=== PATIENT | female | born 1990 | race American Indian/Alaskan Native ===

== ENCOUNTER 2017-10-16 18:16 | Emergency (ER) | payer MEDICAID ==
[2017-10-16 18:16] VITALS: BMI 30.7
[2017-10-16 18:23] VITALS: RESP 18; O2SAT 99
[2017-10-16 19:42] LABS: BASO % 0.3 % (0.0-2.0); EOS # 0.1 K/uL (0.0-0.7); EOS % 0.5 % (0.0-4.0); HEMOGLOBIN 13.6 g/dL (11.0-16.0); LYMPH # 2.8 K/uL (1.0-4.3); LYMPH % 28.6 % (20.0-40.0); MEAN CORPUSCULAR HGB CONC 34.2 g/dL (33.0-37.0); MEAN PLATELET VOLUME 8.8 fL (7.2-11.7); MONO # 0.7 K/uL (0.0-0.8); MONO % 7.4 % (0.0-10.0); NEUT # 6.3 K/uL (1.8-7.0); NEUT % 63.2 % (50.0-75.0); NRBC % 0.1 % (0.0-2.0); RBC 4.52 Mil/uL (3.80-5.20); RED CELL DISTRIBUTION WIDTH 13.2 % (11.5-14.5); WHITE BLOOD COUNT 9.9 K/uL (4.8-10.8)
[2017-10-16 19:43] LABS: MEAN CELL VOLUME 87.8 fL (81.0-99.0)
[2017-10-16] MEDS ORDERED: Sodium Chloride 0.9% 1,000 ML IV STA (19:46)
[2017-10-16 19:52] LABS: SQUAMOUS EPITHIAL 2 /hpf (0-5); URINE BACTERIA FEW (<OCC); URINE BILIRUBIN NEGATIVE (NEGATIVE); URINE BLOOD NEGATIVE (NEGATIVE); URINE CLARITY Hazy (Clear); URINE COLOR Yellow (YELLOW); URINE GLUCOSE (UA) NORMAL (Normal); URINE LEUKOCYTE ESTERASE NEG Leu/uL (Negative); URINE NITRATE POSITIVE (NEGATIVE); URINE PROTEIN NEGATIVE (NEGATIVE); URINE UROBILINOGEN NORMAL mg/dL (0.2-1.0)
[2017-10-16] MEDS ORDERED: Sodium Chloride 0.9% 1,000 ML ONE (19:55)
[2017-10-16 19:56] LABS: ALB/GLOB RATIO 1.1 (1.0-2.1); ALBUMIN 4.5 g/dL (3.5-5.0); ALT/SGPT 28 U/L (9-52); AST/SGOT 24 U/L (14-36); BLOOD UREA NITROGEN 8 mg/dL (7-17); CALCIUM 9.3 mg/dl (8.6-10.4); GFR AFRICAN-AMERICAN > 60; GFR NON-AFRICAN AMERICAN 55; LIPASE 107 U/L (23-300)
[2017-10-16] MEDS ORDERED: Iohexol 240 (50 ml) ONE (19:56)
--- NOTE | 2017-10-16 20:08 | C.PDOC ---
History Of Present Illness 27 year old female is brought to the ED by EMS for evaluation of lower back pain. Patient is c/o intermittent lower back pain for 1 week and for the past 2 days she started having abdominal pain mostly in her right lower abdomen associated with nausea, 2 episodes of vomiting last night and several episode of diarrhea. Denies vomiting today but feels nauseous. Patient reports having prior history of migraines, currently c/o a headache that feels different from prior. Patient denies photophobia, neck stiffness, recent travel, URI symptoms, visual changes, fever, chills, weakness, numbness. Time Seen by Provider: 10/16/17 19:17 Chief Complaint (Nursing): Abdominal Pain History Per: Patient History/Exam Limitations: no limitations Onset/Duration Of Symptoms: Days Current Symptoms Are (Timing): Still Present Location Of Pain/Discomfort: RLQ Radiation Of Pain To:: Back Quality Of Discomfort: "Pain" Associated Symptoms: Nausea, Vomiting, Diarrhea Exacerbating Factors: None Alleviating Factors: None Recent travel outside of the [place]: No Additional History Per: Patient Abnormal Vaginal Bleeding: No Past Medical History Reviewed: Historical Data, Nursing Documentation, Vital Signs Vital Signs: Last Vital Signs Temp 98.9 F 10/16/17 22:00 Pulse 75 10/16/17 22:00 Resp 18 10/16/17 22:00 BP 121/71 10/16/17 22:00 Pulse Ox 99 10/16/17 22:00 - Medical History PMH: No Chronic Diseases Surgical History: No Surg Hx - [facility] Procedures EXTRACTION OF POC, LOW CERVICAL, OPEN APPROACH (11/21/15) Family History: States: Unknown Family Hx - Social History Hx Tobacco Use: Yes Hx Alcohol Use: No Hx Substance Use: No - Immunization History Hx Tetanus Toxoid Vaccination: No Hx Influenza Vaccination: No Hx Pneumococcal Vaccination: No Review Of Systems Constitutional: Negative for: Fever, Chills Cardiovascular: Negative for: Chest Pain, Light Headedness Respiratory: Negative for: Cough, Shortness of Breath Gastrointestinal: Positive for: Nausea, Vomiting, Abdominal Pain. Negative for : Diarrhea Musculoskeletal: Positive for: Back Pain Neurological: Positive for: Headache. Negative for: Weakness, Numbness, Dizziness Physical Exam - Physical Exam Appears: Non-toxic, No Acute Distress Skin: Normal Color, Warm, Dry Head: Atraumatic, Normacephalic Eye(s): bilateral: Normal Inspection, PERRL, EOMI Nose: No Discharge, No Deformity Oral Mucosa: Moist Neck: Normal ROM, Supple, Other (No meningial signs) Chest: Symmetrical Cardiovascular: Rhythm Regular, No Murmur Respiratory: Normal Breath Sounds, No Rhonchi Gastrointestinal/Abdominal: Soft, Tenderness (right and mid suprapubic area), No Guarding, No Rebound, No Other (Mcburney tenderness) Extremity: Normal ROM, No Tenderness, No Swelling Neurological/Psych: Oriented x3, Normal Speech, Normal Cognition Gait: Steady ED Course And Treatment - Laboratory Results Result Diagrams: 10/16/17 19:36 10/16/17 19:36 O2 Sat by Pulse Oximetry: 99 (On RA) Pulse Ox Interpretation: Normal Progress Note: Plan: -Labs. -IV fluids. -Toradol 30 mg IVP. -Zofran 4 mg IVP. -Infleunza A B test. -UA Reassessment Condition: Improved (Pt reports improvement of sx, denies abd pain at this time but mild low back pain. Abd soft NT. Pt with stable vitals and labs and UA results d/w pat. Pt is NAD and understands follow up and return precaution instructions.Pt understands and agrees with treatment plan.) Disposition Counseled Patient/Family Regarding: Diagnosis, Need For Followup - Disposition Disposition: HOME/ ROUTINE Disposition Time: 21:54 Condition: STABLE Additional Instructions: Increase PO fluids Take meds as directed Follow up with PMD Return to ER if worse Prescriptions: Ibuprofen [Motrin] 600 mg PO Q6H #24 tab Nitrofurantoin Macrocrystals [Macrobid] 1 cap PO BID #14 cap Instructions: Urinary Tract Infection in Women (ED) Forms: [facility] ([place]), Work Excuse - Clinical Impression Clinical Impression: Urinary tract infection - 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 - Scribe Statement The provider has reviewed the documentation as recorded by the Scribe Mac Lawson All medical record entries made by the Scribe were at my direction and personally dictated by me. I have reviewed the chart and agree that the record accurately reflects my personal performance of the history, physical exam, medical decision making, and the department course for this patient. I have also personally directed, reviewed, and agree with the discharge instructions and disposition.
[2017-10-16 22:02] VITALS: BP 121/71; PULSE 75; TEMP 98.9
== END 2017-10-16 22:20 | disposition home or self-care (01) ==
LOC: C.ER 18:16
DX: N39.0 Urinary tract infection, site not specified (principal)
CPT/HCPCS: 80053; 81001; 83690; 84703; 85025; 87804; 96361; 96374; 96375; 99284; J1885; J2405; J7040

== ENCOUNTER 2018-10-11 15:51 | Emergency (ER) | payer MEDICAID ==
[2018-10-11 15:51] VITALS: BMI 30.7
[2018-10-11 15:57] VITALS: BP 116/73; PULSE 82; RESP 20; TEMP 97.7; O2SAT 98
--- NOTE | 2018-10-11 16:13 | C.PDOC ---
History Of Present Illness 28 y/o female presents to the ER for evaluation of lower back pain which has been present for the past 1 week. Patient states that he [place] [facility] [place]. Patient reports that he has been taking occasional Motrin. He notes that he did not use ice therapy. Denies having dysuria, hematuria, and bowel/ bladder incontinence. Time Seen by Provider: 10/11/18 16:03 Chief Complaint (Nursing): Back Pain History Per: Patient History/Exam Limitations: no limitations Onset/Duration Of Symptoms: Days Current Symptoms Are (Timing): Still Present Severity: Moderate Past Medical History Reviewed: Historical Data, Nursing Documentation, Vital Signs Vital Signs: Last Vital Signs Temp 97.7 F 10/11/18 15:53 Pulse 82 10/11/18 15:53 Resp 20 10/11/18 15:53 BP 116/73 10/11/18 15:53 Pulse Ox 98 10/11/18 15:53 - Medical History PMH: No Chronic Diseases Other Surgeries: Hx of surgeries - [facility] Procedures EXTRACTION OF POC, LOW CERVICAL, OPEN APPROACH (11/21/15) Family History: States: No Known Family Hx - Social History Hx Tobacco Use: Yes Hx Alcohol Use: Yes Hx Substance Use: No - Immunization History Hx Tetanus Toxoid Vaccination: No Hx Influenza Vaccination: No Hx Pneumococcal Vaccination: No Review Of Systems Except As Marked, All Systems Reviewed And Found Negative. Genitourinary: Negative for: Dysuria, Incontinence, Hematuria Musculoskeletal: Positive for: Back Pain Physical Exam - Physical Exam Appears: Other (mild distress) Skin: Normal Color, Warm, Dry Head: Atraumatic, Normacephalic Eye(s): bilateral: Normal Inspection Nose: Normal Oral Mucosa: Moist Neck: Supple Chest: Symmetrical Cardiovascular: Rhythm Regular Respiratory: Normal Breath Sounds, No Rales, No Rhonchi, No Wheezing Gastrointestinal/Abdominal: Normal Exam, Soft, No Tenderness, No Guarding, No Rebound Back: Other (bilateral sacroiliac tenderness) Neurological/Psych: Oriented x3, Normal Speech ED Course And Treatment O2 Sat by Pulse Oximetry: 98 (RA) Pulse Ox Interpretation: Normal Progress Note: Patient treated with Motrin PO. Medical Decision Making Medical Decision Making: sacro-iliac strain/sprain worse with hot water therapies nsaids/ice educated Disposition Doctor Will See Patient In The: Office Counseled Patient/Family Regarding: Studies Performed, Diagnosis - Disposition Referrals: [facility] [Outside] [facility] [Outside] [facility] [Outside] Disposition: HOME/ ROUTINE Disposition Time: 16:13 Condition: GOOD Additional Instructions: ice packs 1/2 hour per hour, nothing hot motrin/advil 400-600 mg every 6 hours as needed NO HEAT THERPIES NOR HOT SHOWERS FOR 1 WEEK Instructions: Low Back Pain (DC), Muscle Strain (DC) Forms: [employer] (Azeri), Work Excuse - Clinical Impression Clinical Impression: Low back strain - Scribe Statement The provider has reviewed the documentation as recorded by the Elmeribvibha Forrest Provider Attestation: All medical record entries made by the Elmeribe were at my direction and personally dictated by me. I have reviewed the chart and agree that the record accurately reflects my personal performance of the history, physical exam, medical decision making, and the department course for this patient. I have also personally directed, reviewed, and agree with the discharge instructions and disposition.
== END 2018-10-11 16:18 | disposition home or self-care (01) ==
LOC: C.ER 15:51
DX: S39.012A Strain of muscle, fascia and tendon of lower back, initial encounter (principal); X58.XXXA Exposure to other specified factors, initial encounter; Z72.0 Tobacco use